=== PATIENT | female | born 1955 | race Caucasian/White ===

== ENCOUNTER → 2023-06-02 06:28 | Day surgery (SDC) | payer MEDICARE, SELFPAY | LOC: GI 06:28 | PROVIDERS: ATTENDING PHYSICIAN Internal Medicine Gastroenterology | DX: Z12.11 Encounter for screening for malignant neoplasm of colon (principal); K57.30 Diverticulosis of large intestine without perforation or abscess without bleeding; D12.2 Benign neoplasm of ascending colon; D12.5 Benign neoplasm of sigmoid colon | CPT/HCPCS: 45385; 88305 ==

== ENCOUNTER → 2024-04-26 15:02 | Outpatient (REF) | payer MEDICARE, SELFPAY | LOC: WDC 15:02 | PROVIDERS: ATTENDING PHYSICIAN Physician Assistant Medical | DX: Z12.31 Encounter for screening mammogram for malignant neoplasm of breast (principal) | CPT/HCPCS: 77063; 77067 ==

== ENCOUNTER → 2024-08-09 15:25 | Outpatient (REF) | payer MEDICARE, SELFPAY | LOC: HWRAD 15:25 | PROVIDERS: ATTENDING PHYSICIAN Physician Assistant Medical | DX: M79.641 Pain in right hand (principal); M79.642 Pain in left hand | CPT/HCPCS: 73130 ==

== ENCOUNTER → 2025-03-08 11:55 | Outpatient (REF) | payer MEDICARE, SELFPAY | LOC: RAD 11:55 | PROVIDERS: ATTENDING PHYSICIAN Physician Assistant Medical | DX: M25.551 Pain in right hip (principal) | CPT/HCPCS: 73502; 73564 ==